=== PATIENT | male | born 1970 | race Hispanic/Latino ===

== ENCOUNTER 2017-03-28 21:08 | Emergency (ER) | payer MEDICAID ==
[2017-03-28 22:30] LABS: BASO # 0.1 K/uL (0.0-0.2); BASO % 1.1 % (0.0-2.0); EOS % 0.5 % (0.0-4.0); HEMATOCRIT 46.2 % (35.0-51.0); LYMPH # 2.5 K/uL (1.0-4.3); LYMPH % 28.5 % (20.0-40.0); MEAN CORPUSCULAR HEMOGLOBIN 28.9 pg (27.0-31.0); MEAN CORPUSCULAR HGB CONC 33.2 g/dL (33.0-37.0); MEAN PLATELET VOLUME 8.2 fL (7.2-11.7); MONO # 0.4 K/uL (0.0-0.8); MONO % 4.7 % (0.0-10.0); NRBC % 0.3 % (0.0-2.0); WHITE BLOOD COUNT 8.9 K/uL (4.8-10.8)
[2017-03-28 22:42] LABS: CHLORIDE 99 mmol/L (98-107); POTASSIUM 4.3 mmol/L (3.6-5.2); SODIUM 139 mmol/L (132-148)
[2017-03-28 22:44] LABS: ALB/GLOB RATIO 1.7 (1.0-2.1); ALKALINE PHOSPHATASE 130 U/L (38-126); BILIRUBIN,TOTAL 4.7 mg/dL (0.2-1.3); CARBON DIOXIDE 22 mmol/L (22-30); GFR AFRICAN-AMERICAN > 60; TOTAL PROTEIN 7.5 g/dL (6.3-8.3)
[2017-03-28 22:45] LABS: ALCOHOL SERUM 13 mg/dl (0-10); ALT/SGPT 914 U/L (21-72); BLOOD UREA NITROGEN 28 mg/dL (9-20); CALCIUM 8.8 mg/dl (8.6-10.4); GLUCOSE,RANDOM 72 mg/dL (75-110)
[2017-03-28 22:53] LABS: RBC URINE 3 /hpf (0-3); URINE BACTERIA RARE (<OCC); URINE BILIRUBIN NEGATIVE (NEGATIVE); URINE BLOOD NEGATIVE (NEGATIVE); URINE GLUCOSE (UA) NORMAL (Normal); URINE KETONE TRACE mg/dL (NEGATIVE); URINE LEUKOCYTE ESTERASE NEG Leu/uL (Negative); URINE PROTEIN 2+ mg/dL (NEGATIVE); WBC URINE 2 /hpf (0-5)
[2017-03-28 22:54] LABS: AST/SGOT 705 U/L (17-59); URINE COLOR YELLOW (YELLOW)
[2017-03-28 22:56] LABS: VALPROIC ACID < 10.0 ug/mL (50.0-100.0)
--- NOTE | 2017-03-28 23:07 | C.PDOC ---
Time Seen by Provider: 03/28/17 21:40 Chief Complaint (Nursing): Psychiatric Evaluation History Per: Patient Onset/Duration Of Symptoms: Days Current Symptoms Are (Timing): Worse Suicide/Self Injury Attempted (Context): None Modifying Factor(s): Alcohol, Marijuana, Narcotics, Cocaine Severity: Moderate Associated Symptoms: Agitation Additional History Per: Prior Records Past Medical History Reviewed: Historical Data, Nursing Documentation, Vital Signs Vital Signs: Last Vital Signs Temp 98.6 F 03/28/17 21:21 Pulse 100 H 03/28/17 21:21 Resp 16 03/28/17 21:21 BP 105/73 03/28/17 21:21 Pulse Ox 99 03/28/17 23:07 - Medical History PMH: Bipolar Disorder, Hepatitis (C), HTN, Hypercholesterolemia, Schizophrenia Surgical History: Cholecystectomy Family History: States: Unknown Family Hx - Social History Hx Alcohol Use: Yes Hx Substance Use: Yes - Immunization History Hx Influenza Vaccination: No Hx Pneumococcal Vaccination: No Review Of Systems Except As Marked, All Systems Reviewed And Found Negative. Constitutional: Negative for: Fever, Weakness Cardiovascular: Negative for: Chest Pain Respiratory: Negative for: Shortness of Breath Gastrointestinal: Negative for: Vomiting, Abdominal Pain Musculoskeletal: Negative for: Neck Pain Neurological: Negative for: Weakness, Numbness, Seizures Psych: Positive for: Psychosis Physical Exam - Physical Exam Appears: Non-toxic, Agitated Skin: Warm, Dry Head: Atraumatic Eye(s): bilateral: PERRL (but small) Neck: Normal ROM, Supple Cardiovascular: Rhythm Regular Respiratory: Normal Breath Sounds, No Accessory Muscle Use Gastrointestinal/Abdominal: Soft, No Tenderness Extremity: Normal ROM Neurological/Psych: Oriented x3, Normal Motor, Normal Sensation ED Course And Treatment - Laboratory Results Result Diagrams: 03/28/17 22:27 03/28/17 22:27 Lab Interpretation: Abnormal Interpretation Of Abnormal: Abnormal LFTs O2 Sat by Pulse Oximetry: 99 Pulse Ox Interpretation: Normal Progress Note: Pt was evaluated by the beet worker who d/w Dr. Perla. They psychiatrically cleared pt for discharge home. Dr. Perla recommended giving Rx for a one week supply of the following medicaitons: Protonix 20mg qd, Vasotec 2.5mg qd, Seroquel 300mg HS, and Depakote ER 500mg bid. Reassessment Condition: Improved Disposition Counseled Patient/Family Regarding: Studies Performed, Diagnosis, Need For Followup, Rx Given, Smoking Cessation - Disposition Disposition: HOME/ ROUTINE Disposition Time: 01:05 Condition: STABLE Additional Instructions: Avoid illicit drugs and alcohol. Follow up with your doctor for further evaluation of you abnormal liver function tests. Follow up with your psychiatrist. Return to the ER if you develop worsening of symptoms or if you have any other concerns. Prescriptions: Divalproex [Depakote ER] 500 mg PO BID #14 ter Enalapril Maleate [Vasotec] 2.5 mg PO DAILY #7 tab Pantoprazole Sodium [Protonix] 20 mg PO DAILY #7 ect QUEtiapine [SEROquel] 300 mg PO HS #7 tab Instructions: Depression (ED) - Clinical Impression Clinical Impression: Depressive disorder, Abnormal LFTs (liver function tests), Abuse, drug or alcohol
[2017-03-29 01:25] VITALS: BP 130/76; PULSE 81; RESP 20; TEMP 98; O2SAT 98
== END 2017-03-29 01:25 | disposition home or self-care (01) ==
LOC: C.ER 21:08
DX: F32.89 Other specified depressive episodes (principal); R79.89 Other specified abnormal findings of blood chemistry; F10.10 Alcohol abuse, uncomplicated; F19.10 Other psychoactive substance abuse, uncomplicated; Y90.0 Blood alcohol level of less than 20 mg/100 ml